=== PATIENT | female | born 1955 | race Caucasian/White ===

== ENCOUNTER 2019-01-03 08:26 | Emergency (ER) | payer SELFPAY ==
[2019-01-03 08:41] VITALS: TEMP 98.2; BMI 26.3
--- NOTE | 2019-01-03 08:54 | PDOC ---
History of Present Illness - General Chief Complaint: Pain, Acute Stated Complaint: PATIENT HERE FOR SWOLLEN LT. SIDE OF FACE Time Seen by Provider: 01/03/19 08:53 History Source: Patient Exam Limitations: No Limitations Past History - Travel Traveled outside of the country in the last 30 days: No Close contact w/someone who was outside of country & ill: No - Past Medical History Allergies/Adverse Reactions: Allergies Allergy/AdvReac Type Severity Reaction Status Date / Time Penicillins Allergy Verified 01/03/19 08:36 Home Medications: Ambulatory Orders NK [No Known Home Medication] 01/03/19 Asthma: Yes COPD: No - Immunization History Immunization Up to Date: (UNKNOWN) - Suicide/Smoking/Psychosocial Hx Smoking History: Current every day smoker Information on smoking cessation initiated: No Hx Alcohol Use: No Drug/Substance Use Hx: No Review of Systems - Review of Systems Able to Perform ROS?: Yes Comments:: 01/03/19 08:53 CONSTITUTIONAL: Absent: fever, chills, diaphoresis, generalized weakness, malaise, loss of appetite HEENT: Present: L sided facial swelling Absent: rhinorrhea, nasal congestion, throat pain, throat swelling, difficulty swallowing, mouth swelling, ear pain, eye pain , visual Changes CARDIOVASCULAR: Absent: chest pain, loss of consciousness, palpitations, irregular heart rate, peripheral edema RESPIRATORY: Absent: cough, shortness of breath, dyspnea with exertion, orthopnea, wheezing, stridor, hemoptysis MUSCULOSKELETAL: Absent: myalgia, arthralgia, joint swelling SKIN: Absent: rash, itching, pallor NEUROLOGIC: Absent: headache, focal weakness or paresthesias, dizziness, unsteady gait, seizure, mental status changes, bladder or bowel incontinence PSYCHIATRIC: Absent: anxiety, depression, suicidal or homicidal ideation, hallucinations. Is the patient limited Italian proficient: No *Physical Exam - Vital Signs Last Vital Signs Temp Pulse Resp BP Pulse Ox 98.2 F 89 18 176/100 H 100 01/03/19 08:37 01/03/19 08:37 01/03/19 08:37 01/03/19 08:37 01/03/19 08:37 - Physical Exam Comments: 01/03/19 08:54 GENERAL: Well developed, well nourished. Awake and alert. No acute distress. HEENT: Normocephalic, atraumatic. PERRLA, EOMI. No conjunctival pallor. Sclera are non- icteric. Moist mucous membranes. Oropharynx is clear. L 2nd premolar cracked. Facial swelling along the L mandible with induration. No fluctuance, warmth or overlying cellulitis to the area. No TTP of the mandible. NECK: Supple. Full ROM. No JVD. Carotid pulses 2+ and symmetric, without bruits. No thyromegaly. No lymphadenopathy. SKIN: Warm and dry. Normal capillary refill. No rashes. No jaundice. NEUROLOGICAL: Alert, awake, appropriate. Cranial nerves 2-12 intact. No deficits to light touch and temperature in face, upper extremities and lower extremities. No motor deficits in the in face, upper extremities and lower extremities. Normoreflexic in the upper and lower extremities. Normal speech. Toes are down- going bilaterally. Gait is normal without ataxia. PSYCHIATRIC: Cooperative. Good eye contact. Appropriate mood and affect. Medical Decision Making - Medical Decision Making 01/03/19 09:53 The patient is a 63-year-old female with past medical history of hypertension, who presents to the emergency department today for left-sided facial swelling. Patient states that she cracked a tooth approximately 2 weeks ago on the left lower side. She states that since then she has noticed swelling and pain to the area. She states she took for 200 mg ibuprofen tablets prior to arrival in the ER this morning. Denies fevers, chills, redness to the area, nausea, vomiting, drainage from the site. A/P: Dental pain/inflammation due to broken tooth. On exam patient with a cracked second lower left premolar. The area of inflammation to the left cheek corresponds with the cracked tooth. Probable dental infection We'll start patient on clindamycin as an outpatient given pen ALLERGY. Patient even bupivacaine dental block in the emergency department. 0.5 ml of bupivacaine injected into the subperiosteal space just below the affected tooth. Patient reports good relief of her pain with the injection. We'll discharge home with dentistry follow-up. Blood pressure noted at 176/100. Patient states she has not seen a primary care doctor to get medication as she does not have insurance. Her friend that is with her made an appointment for her to follow up with the primary care office at [facility] for today at 2:00. Patient is asymptomatic without chest pain , shortness of breath or headache at this time. I discussed the physical exam findings, ancillary test results and final diagnoses with the patient. I answered all of the patient's questions. The patient was satisfied with the care received and felt comfortable with the discharge plan and treatment plan. The Patient agrees to follow up with the primary care physician/specialist within 24-72 hours. Return precautions were given. *DC/Admit/Observation/Transfer Diagnosis at time of Disposition: Toothache - Discharge Dispostion Disposition: HOME Condition at time of disposition: Stable Decision to Admit order: No - Referrals - Patient Instructions Printed Discharge Instructions: DI for Tooth Decay Additional Instructions: You were evaluated for your dental pain today. You have an infection due to a broken tooth. Your given a dental block. This will last approximately 8-10 hours. You may take Motrin 800 mg every 8 hours as needed for pain. Please follow up with dentistry as soon as possible to have the tooth fixed. Please take the clindamycin 3 times a day for one week. Return to the ER for fevers, redness over the site, lightheadedness, dizziness or if you have any changes in your symptoms. Usted fue evaluado para lua dolor dental hoy. Usted tiene boyd infeccin debido a un diente roto. Te gordon dado un bloqueo dental. La Tour durar aproximadamente 8-10 horas. Puede dori Motrin 800 mg cada 8 horas segn sea necesario para el dolor. Por favor, ramesh un seguimiento con la odontologa lo antes posible para que le reparen el diente. [place] la clindamicina 3 veces al da francisca boyd semana. Regrese a la yoly de emergencias para las fiebres, enrojecimiento en el sitio, mareos, mareos o si tiene algn cambio en chani sntomas. [facility] Address: [place] [address] - Post Discharge Activity Forms/Work/School Notes: Back to Work
[2019-01-03 09:46] VITALS: BP 159/96; PULSE 88
== END 2019-01-03 09:46 | disposition home or self-care (01) ==
LOC: JER 08:26
PROC: 3E0T3BZ Introduction of Anesthetic Agent into Peripheral Nerves and Plexi, Percutaneous Approach (ICD-10-PCS; principal; 2019-01-03)
DX: K08.89 Other specified disorders of teeth and supporting structures (principal)
CPT/HCPCS: 99282-25

== ENCOUNTER 2024-03-07 22:07 | Inpatient (IN) | payer SELFPAY ==
[2024-03-07] MEDS: SODIUM CHLORIDE 1,000 ML IV STA (22:35)
[2024-03-07 22:42] LABS: BASO % 0.6 % (0-2.0); EOS % 2.9 % (0-4.5); HEMATOCRIT 31.2 % (32.4-45.2); HEMOGLOBIN 9.9 GM/dL (10.7-15.3); MCH 27.1 pg (25.7-33.7); MCHC 31.9 g/dl (32.0-36.0); MEAN PLT VOLUME 7.5 fl (7.5-11.1); MONO % 8.4 % (3.8-10.2); NEUT % 63.1 % (42.8-82.8); PLATELET COUNT 718 10^3/uL (134-434); RBC 3.66 M/mm3 (3.60-5.2); WHITE BLOOD COUNT 13.1 K/mm3 (4.0-10.0)
[2024-03-07 22:50] LABS: INR 1.06 (0.83-1.09); PROTHROMBIN TIME (PATIENT) 12.2 SEC (9.7-13.0)
[2024-03-07 22:53] LABS: ACTIVATED PTT 29.6 SECONDS (25.2-36.5)
[2024-03-07 22:59] LABS: ALBUMIN 2.9 g/dl (3.4-5.0); BLOOD UREA NITROGEN 7.8 mg/dL (7-18); CALCIUM 9.1 mg/dL (8.5-10.1); MAGNESIUM 1.9 mg/dL (1.8-2.4)
[2024-03-07 23:00] LABS: CREATININE 0.8 mg/dL (0.55-1.3)
[2024-03-07 23:03] LABS: BILIRUBIN,TOTAL 0.3 mg/dL (0.2-1); TOT PROT 7.1 g/dl (6.4-8.2)
[2024-03-07 23:09] LABS: VENOUS BASE EXCESS -1.9 mmol/L (-2-2); VENOUS O2 SATURATION 19.4 % (70-80); VENOUS PCO2 41.8 mmHg (38-52); VENOUS PH 7.365 (7.310-7.410)
[2024-03-08] MEDS ORDERED: AZITHROMYCIN IVPB 500 MG/250 ML BAG IVPB ONE (00:38)
[2024-03-08] MEDS ORDERED: CEFTRIAXONE 1 GM/50 ML BAG ONE (00:38)
[2024-03-08] MEDS: CEFTRIAXONE 1,000 MG in DEXTROSE 5%-WATER - 50 ML IVPB ONE (00:42)
[2024-03-08] MEDS: AZITHROMYCIN IVPB 500 MG in DEXTROSE 5%-WATER - 250 ML IVPB ONE (01:16)
[2024-03-08 04:33] VITALS: BMI 24.0
[2024-03-08] MEDS: LEVALBUTEROL HCL 0.31 MG/3 ML VIAL.NEB IH SCH (07:40)
[2024-03-08 08:02] LABS: HEMATOCRIT 27.8 % (32.4-45.2); MCH 27.8 pg (25.7-33.7); MCHC 32.4 g/dl (32.0-36.0); MEAN CELL VOLUME 85.9 fl (80-96); MEAN PLT VOLUME 7.8 fl (7.5-11.1); PLATELET COUNT 590 10^3/uL (134-434); RBC 3.23 M/mm3 (3.60-5.2); RDW 15.3 % (11.6-15.6); RETICULOCYTES 1.79 % (0.5-1.5)
[2024-03-08 08:28] LABS: POTASSIUM 4.1 mmol/L (3.5-5.1)
[2024-03-08 08:31] LABS: BLOOD UREA NITROGEN 6.3 mg/dL (7-18); CALCIUM 8.6 mg/dL (8.5-10.1); MAGNESIUM 1.9 mg/dL (1.8-2.4)
[2024-03-08 08:34] LABS: CREATININE 0.6 mg/dL (0.55-1.3); PHOSPHOROUS 3.9 mg/dL (2.5-4.9)
[2024-03-08] MEDS: BUDESONIDE/FORMETEROL FUMARATE 80/4.5 mcg INHALER IH SCH (09:33)
[2024-03-08] MEDS: NICOTINE 7 MG/24 HOURS TOPICAL PATCH TD SCH (09:34)
[2024-03-08] MEDS: methylPREDNISolone NA SUCC 40 MG/1 ML VIAL IVPUSH SCH (09:34)
[2024-03-08] MEDS ORDERED: ENOXAPARIN NA (PORCINE) 40 MG/0.4 ML DISP.SYRIN SQ ONE (13:26)
[2024-03-08] MEDS: ENOXAPARIN NA (PORCINE) 40 MG/0.4 ML DISP.SYRIN SQ ONE (15:58)
[2024-03-08 16:29] LABS: PH,URINE 5.5 (5.0-8.0); URINE APPEARANCE Clear; URINE BILIRUBIN Negative (NEGATIVE); URINE COLOR Yellow; URINE GLUCOSE (UA) Negative (NEGATIVE); URINE KETONE Negative (NEGATIVE); URINE LEUK ESTERASE Negative (NEGATIVE); URINE NITRITE Negative (NEGATIVE); URINE PROTEIN Negative (NEGATIVE); URINE UROBILINOGEN 0.2 mg/dL (0.2-1.0)
[2024-03-08] MEDS: ACETAMINOPHEN 1000 MG/100 ML BAG IVPB PRN (18:39)
[2024-03-08] MEDS: MONTELUKAST NA 5 MG TAB.CHEW PO SCH (22:57)
[2024-03-09 07:49] LABS: POTASSIUM 4.2 mmol/L (3.5-5.1)
[2024-03-09 07:53] LABS: BLOOD UREA NITROGEN 6.4 mg/dL (7-18); CALCIUM 9.3 mg/dL (8.5-10.1)
[2024-03-09 07:57] LABS: CREATININE 0.4 mg/dL (0.55-1.3)
[2024-03-09] MEDS: PANTOPRAZOLE 40 MG TABLET PO SCH (09:30)
[2024-03-09 13:52] LABS: BF WBC & OTHER NUCLEATED CELLS 4191 /mm3
[2024-03-09 14:20] LABS: BODY FLUID MACROPHAGES 5 %
[2024-03-10 06:32] LABS: HEMATOCRIT 28.7 % (32.4-45.2); HEMOGLOBIN 9.2 GM/dL (10.7-15.3); MCH 27.2 pg (25.7-33.7); MCHC 32.1 g/dl (32.0-36.0); MEAN CELL VOLUME 84.7 fl (80-96); MEAN PLT VOLUME 7.4 fl (7.5-11.1); PLATELET COUNT 614 10^3/uL (134-434); RBC 3.38 M/mm3 (3.60-5.2); RDW 15.6 % (11.6-15.6); WHITE BLOOD COUNT 11.3 K/mm3 (4.0-10.0)
[2024-03-10 06:52] LABS: POTASSIUM 4.2 mmol/L (3.5-5.1)
[2024-03-10 06:59] LABS: ALBUMIN 2.4 g/dl (3.4-5.0); BLOOD UREA NITROGEN 9.8 mg/dL (7-18); MAGNESIUM 1.7 mg/dL (1.8-2.4)
[2024-03-10 07:01] LABS: PHOSPHOROUS 4.3 mg/dL (2.5-4.9)
[2024-03-10 07:03] LABS: BILIRUBIN,TOTAL 0.3 mg/dL (0.2-1); CREATININE 0.5 mg/dL (0.55-1.3); TOT PROT 5.9 g/dl (6.4-8.2)
[2024-03-10] MEDS: ENOXAPARIN NA (PORCINE) 40 MG/0.4 ML DISP.SYRIN SQ SCH (09:50)
[2024-03-10] MEDS: ACETAMINOPHEN 1000 MG/100 ML BAG IVPB PRN (09:52)
[2024-03-10 14:11] LABS: BODY FLUID ALBUMIN 1.9 g/dL (Not Estab.)
[2024-03-10] MEDS ORDERED: MAG HYDROX/AL HYDROX/SIMETH 30 ML UNIT-DOSE CUP PO PRN (16:25)
[2024-03-10] MEDS: MAGNESIUM 2GM/50ML STERILE WATER IVPB IVPB ONE (17:52)
[2024-03-10] MEDS: BISACODYL 5 MG TABLET.DR (FP) PO PRN (18:16)
[2024-03-11] MEDS: morphine SULFATE 4 MG/ML VIAL IVPUSH ONE (00:50)
[2024-03-11] MEDS: METOPROLOL TARTRATE 25 MG TABLET (FP) PO SCH (12:09)
[2024-03-11] MEDS ORDERED: MELATONIN 5 MG TABLETS PO PRN (16:16)
[2024-03-11] MEDS ORDERED: ACETAMINOPHEN 1000 MG/100 ML BAG IVPB PRN (16:19)
[2024-03-11] MEDS: POLYETHYLENE GLYCOL (HEALTHYLAX) 3350 17 GM PACKET PO PRN (16:44)
[2024-03-12] MEDS: METOPROLOL TARTRATE 25 MG TABLET (FP) PO SCH (10:13)
[2024-03-12 10:44] LABS: BASO % 0.8 % (0-2.0); EOS % 3.2 % (0-4.5); HEMATOCRIT 29.3 % (32.4-45.2); HEMOGLOBIN 9.4 GM/dL (10.7-15.3); LYMPH % 20.7 % (8-40); MCH 26.9 pg (25.7-33.7); MEAN CELL VOLUME 84.1 fl (80-96); MEAN PLT VOLUME 7.8 fl (7.5-11.1); MONO % 8.4 % (3.8-10.2); NEUT % 66.9 % (42.8-82.8); PLATELET COUNT 647 10^3/uL (134-434); RBC 3.48 M/mm3 (3.60-5.2); RDW 15.5 % (11.6-15.6); WHITE BLOOD COUNT 12.2 K/mm3 (4.0-10.0)
[2024-03-12 11:03] LABS: POTASSIUM 4.4 mmol/L (3.5-5.1)
[2024-03-12 11:07] LABS: CALCIUM 9.1 mg/dL (8.5-10.1)
[2024-03-12 11:08] LABS: ALBUMIN 2.4 g/dl (3.4-5.0); BLOOD UREA NITROGEN 12.7 mg/dL (7-18); MAGNESIUM 2.1 mg/dL (1.8-2.4)
[2024-03-12 11:11] LABS: CREATININE 0.4 mg/dL (0.55-1.3); PHOSPHOROUS 3.9 mg/dL (2.5-4.9)
[2024-03-12 11:12] LABS: BILIRUBIN,TOTAL 0.8 mg/dL (0.2-1)
[2024-03-12 11:13] LABS: TOT PROT 6.1 g/dl (6.4-8.2)
[2024-03-12] MEDS: METOCLOPRAMIDE HCL INJECTION 10 MG/2 ML VIAL IVPUSH PRN (13:14)
[2024-03-13 07:01] LABS: HEMATOCRIT 29.7 % (32.4-45.2); HEMOGLOBIN 9.4 GM/dL (10.7-15.3); MCH 26.5 pg (25.7-33.7); MCHC 31.7 g/dl (32.0-36.0); MEAN CELL VOLUME 83.7 fl (80-96); MEAN PLT VOLUME 8.1 fl (7.5-11.1); PLATELET COUNT 693 10^3/uL (134-434); RBC 3.54 M/mm3 (3.60-5.2); RDW 15.4 % (11.6-15.6); WHITE BLOOD COUNT 12.7 K/mm3 (4.0-10.0)
[2024-03-13 07:21] LABS: POTASSIUM 4.5 mmol/L (3.5-5.1)
[2024-03-13 07:27] LABS: CALCIUM 8.9 mg/dL (8.5-10.1)
[2024-03-13 07:28] LABS: BLOOD UREA NITROGEN 14.2 mg/dL (7-18); MAGNESIUM 1.9 mg/dL (1.8-2.4)
[2024-03-13 07:31] LABS: CREATININE 0.4 mg/dL (0.55-1.3); PHOSPHOROUS 3.7 mg/dL (2.5-4.9)
[2024-03-13 19:38] VITALS: RESP 18
[2024-03-13 19:50] VITALS: BP 108/66; PULSE 95; TEMP 97.9
== END 2024-03-13 20:25 | disposition short-term general hospital (02) | DRG 691 ==
LOC: JER 22:07 → JERBED 03-08 00:54 → J4W 03-08 03:36
PROVIDERS: ADMIT Internal Medicine; ATTEND Internal Medicine
PROC: 0W9B3ZZ Drainage of Left Pleural Cavity, Percutaneous Approach (ICD-10-PCS; principal; 2024-03-09)
DX: C83.09 Small cell B-cell lymphoma, extranodal and solid organ sites (principal); J91.0 Malignant pleural effusion; I31.4 Cardiac tamponade; J84.9 Interstitial pulmonary disease, unspecified; C79.9 Secondary malignant neoplasm of unspecified site; I47.19 Other supraventricular tachycardia; D47.3 Essential (hemorrhagic) thrombocythemia; D64.9 Anemia, unspecified; E78.5 Hyperlipidemia, unspecified; F17.210 Nicotine dependence, cigarettes, uncomplicated; F41.0 Panic disorder [episodic paroxysmal anxiety]; I10 Essential (primary) hypertension; J45.909 Unspecified asthma, uncomplicated; R59.0 Localized enlarged lymph nodes; R63.0 Anorexia; R63.4 Abnormal weight loss
CPT/HCPCS: 36415; 71046-TC-FY; 71250-TC; 71275-TC; 74177-TC; 76942; 80048; 80053; 81003; 82042; 82150; 82465; 82550; 82728; 82803; 82945; 83540; 83550; 83605; 83615; 83690; 83735; 83986; 84100; 84157; 84478; 84484; 85025; 85027; 85045; 85379; 85610; 85730; 86850; 86900; 86901; 87040; 87070; 87075; 87102; 87116; 87205; 87206; 87210; 87635; 88108; 88305-TC; 93005; 93010; 93306-TC; 97116-GP; 97162-GP; 99291; J0131; Q9967